=== PATIENT | male | born 1955 | race Two or more races ===

== ENCOUNTER 2018-05-20 00:04 | Emergency (ER) | payer OTHER ==
[~2018-05-20] VITALS: Ht 182.9 cm; Wt 113.4 kg
--- NOTE | 2018-05-20 00:09 | Emergency Room Report ---
History of Present Illness General Source: Family Member, EMS Present Illness HPI Patient is a 62-year-old male brought in by EMS after increased altered mental status. Patient had reportedly been drinking heavily at a constitution party. Patient was brought in by [facility] department. Patient was noted to have increased altered level consciousness. He was noted to have adequate blood sugar. Patient reportedly had been vomiting. Allergies: Coded Allergies: No Known Allergies (Unverified , 05/20/18) Patient History Past Medical History: see triage record Reviewed Nursing Documentation: PMH: Agreed; PSxH: Agreed Review of Systems All Other Systems: negative except mentioned in HPI Physical Exam Sp02 EP Interpretation: reviewed, normal General Appearance: normal inspection, alert, mild distress Head: atraumatic ENT: normal ENT inspection, hearing grossly normal, normal voice Neck: normal inspection, full range of motion, supple, no bony tend Respiratory: normal inspection, lungs clear, normal breath sounds, no respiratory distress, no retraction, no wheezing Cardiovascular #1: regular rate, rhythm, no edema Gastrointestinal: normal inspection, normal bowel sounds, non tender, soft, no guarding, no hernia Genitourinary: no CVA tenderness Musculoskeletal: normal inspection, back normal, normal range of motion Neurologic: alert, responsive, other - ataxia Psychiatric: normal inspection Skin: normal inspection, normal color, no rash Medical Decision Making Diagnostic Impression: Primary Impression: Acute alcoholic intoxication ER Course Patient is 62-year-old male presented after increased altered mental status. Patient had recent heavy alcohol intake. Differential diagnosis includes is not limited to hypoglycemia, alcohol intoxication, intracranial hemorrhage, CVA among others. Patient has a benign exam and does not appear to require any further imaging or laboratory testing at this time per patient's family member patient has a history of recent alcohol intake. Blood sugar was noted to be adequate. Patient was observed in the emergency department with adequate improvement in his mental status. At the time of discharge patient was able to ambulate. Patient was discharged with his who feels comfortable taking the patient home.Patient was noted to have some prior history of abdominal aortic aneurysm which had previous endovascular repair however this is not appear to be actively an issue. Status: improved Disposition: HOME, SELF-CARE Condition: Stable Kyle Garduno MD May 20, 2018 00:09
--- NOTE | 2018-05-20 00:10 | NUR ---
ED Nurse Note: Patient biblillian BVA 6 c/o ETOH. at time of arrival patient does have a GCS of 7 and is actively gagging, patients states that they [place] and was drinking an unknown amount of whiskey, patients blood sugar was 118. Patient was placed on a monitor and received verbal orders from Dr. Garduno for Ailyn BROWN.
[2018-05-20 00:30] VITALS: BP 135/92
--- NOTE | 2018-05-20 03:04 | NUR ---
ED Nurse Note: Patient is discharged from ED accompanied by family, patient states that he is okay to go, at time of departure, patient wheelchaired into car. patient, ID band removed.
[2018-05-20 04:04] VITALS: BP 128/88
== END 2018-05-20 03:04 | disposition home or self-care (01) ==
LOC: EDBD 00:04 → EMR 01:50
DX: F10.129 Alcohol abuse with intoxication, unspecified (principal); R11.10 Vomiting, unspecified
CPT/HCPCS: 96372; 99283; J2405